=== PATIENT | female | born 2000 | race African-American/Black ===

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

== ENCOUNTER 2024-01-12 14:16 | Emergency (ER) | payer OTHER ==
[2024-01-12] MEDS ORDERED: Ketorolac Tromethamine 30 MG (1 mL) VIAL ONE ×2 (14:28→14:31)
== END 2024-01-12 14:50 | disposition home or self-care (01) ==
LOC: ERS 14:16
DX: S39.012A Strain of muscle, fascia and tendon of lower back, initial encounter (principal); X58.XXXA Exposure to other specified factors, initial encounter
CPT/HCPCS: 96372; 99282; J1885

== ENCOUNTER 2024-04-03 08:41 | Emergency (ER) | payer BC, SELFPAY | END 2024-04-03 11:18 | disposition home or self-care (01) | LOC: ERS 08:41 | DX: B34.9 Viral infection, unspecified (principal) | CPT/HCPCS: 71046; 87081; 87428; 87430 ==

== ENCOUNTER 2024-04-04 15:36 | Emergency (ER) | payer BC ==
[~2024-04-04 15:36] MED LIST: Iopamidol 370 76% 100 ML VIAL ONE
[2024-04-04] MEDS ORDERED: Lorazepam 2 MG/ML VIAL ONE (22:03)
[2024-04-04 23:37] LABS: #Basophils 0.03 10x3/uL (0.0-0.2); %Basophils 0.3 % (0.0-1.0); %Eosinophils 0.7 % (0.0-10.0); %Lymphocytes 14.3 % (21.0-51.0); %Monocytes 6.3 % (0.0-10.0); Hematocrit 34.6 % (36.0-47.0); Hemoglobin 11.8 g/dL (12.0-16.0); Mean Corpuscular HGB CONC 34.1 g/dL (32.0-36.0); Mean Corpuscular Hemoglobin 30.6 pg (27.0-31.0); Mean Corpuscular Volume 89.9 fL (78.0-98.0); Mean Platelet Volume 10.7 fL (7.4-10.4); Platelet Count 202 10x3/uL (130-400); RBC Distribution Width 12.9 % (11.5-14.5); Red Blood Cell (RBC) Count 3.85 mill/uL (4.20-5.40)
[2024-04-04 23:53] LABS: BHCG - Serum Negative (NEGATIVE); Pregs Control Background? CLEAR/WHITE (CLR/WHITE); Pregs Control Bar Appear? YES (CONTROL BAR)
[2024-04-05 00:01] LABS: ALT (SGPT) 8 U/L (Less than 34); AST (SGOT) 14 U/L (11-34); Albumin 3.6 g/dL (3.1-4.5); Alkaline Phosphatase 56 U/L (40-110); Anion Gap 11 mmol/L (10-20); BUN (Urea Nitrogen) 12 mg/dL (7.0-18.7); Bilirubin, Total 0.5 mg/dL (0.3-1.2); Calc. Creatinine Clearance 0 mL/min (70-130); Calcium 8.3 mg/dL (7.8-10.44); Carbon Dioxide 20 mmol/L (22-29); Chloride 110 mmol/L (98-107); Estimated GFR 129; Globulin 3.7 g/dL (2.4-3.5); Glucose 88 mg/dL (70-105); Potassium 3.7 mmol/L (3.5-5.1); Protein, Total 7.3 g/dL (6.0-8.3); Sodium 137 mmol/L (136-145)
[2024-04-05 00:05] LABS: Troponin I Less than 0.010 ng/mL (< 0.028)
== END 2024-04-05 01:39 | disposition home or self-care (01) ==
LOC: ERS 15:36
DX: B34.9 Viral infection, unspecified (principal)
CPT/HCPCS: 36415; 71046; 71275; 80053; 84443; 84484; 84703; 85025; 93005; 96374; J2060; Q9967